=== PATIENT | male | born 1970 | race Caucasian/White ===

== ENCOUNTER 2020-12-04 06:30 | Emergency (ER) | payer OTHER ==
[2020-12-04 06:48] VITALS: BP 146/94; PULSE 72; TEMP 98.1; BMI 31.1
[2020-12-04] MEDS ORDERED: AMOX TR/POT CLAV 875MG/125MG TABLETS (FP) PO ONE (06:50)
[2020-12-04] MEDS ORDERED: AMOX TR/POT CLAV 875MG/125MG TABLETS (FP) ONE (06:53)
== END 2020-12-04 06:59 | disposition home or self-care (01) ==
LOC: FER 06:30
DX: J01.00 Acute maxillary sinusitis, unspecified (principal)
CPT/HCPCS: 99283-25